=== PATIENT | male | born 1985 | race Asian ===

== ENCOUNTER → 2016-11-27 | Outpatient (CLI) | payer OTHER ==
--- NOTE | 2016-11-27 16:33 | DIAGNOSTIC IMAGING REPORT ---
RIGHT KNEE 3 VIEWS CLINICAL HISTORY: M10.9 GoutM13.0 Polyarthropathy or polyarthritis of multiple sit Right pain COMPARISON: None. DISCUSSION: The bones and joint spaces appear intact. There is no evidence of fracture, dislocation or bony disease. There is no evidence for soft tissue swelling. IMPRESSION: Negative study. Electronically signed by: Sawyer Leblanc M.D. 11/27/2016 4:31 PM Dictated Date/Time: 11/27/2016 4:30 PM
--- NOTE | 2016-11-27 16:36 | DIAGNOSTIC IMAGING REPORT ---
LEFT KNEE 3 VIEWS CLINICAL HISTORY: M10.9 GoutM13.0 Polyarthropathy or polyarthritis of multiple COMPARISON: None. DISCUSSION: The bones and joint spaces appear intact. There is no evidence of fracture, dislocation or bony disease. There is no evidence for soft tissue swelling. IMPRESSION: Negative study. Electronically signed by: Sawyer Leblanc M.D. 11/27/2016 4:34 PM Dictated Date/Time: 11/27/2016 4:31 PM
--- NOTE | 2016-11-27 16:43 | DIAGNOSTIC IMAGING REPORT ---
RIGHT HAND MIN 3 VIEWS ROUTINE, LEFT HAND MIN 3 VIEWS ROUTINE CLINICAL HISTORY: M10.9 GoutM13.0 Polyarthropathy or polyarthritis of multiple sit Right COMPARISON STUDY: None. FINDINGS: No fracture or dislocation. Soft tissues are unremarkable. Bone mineralization is intact. No erosions identified. IMPRESSION: Unremarkable bilateral hands. Electronically signed by: Enrique Gandhi M.D. 11/27/2016 4:41 PM Dictated Date/Time: 11/27/2016 4:40 PM
[2016-11-27 18:12] LABS: RHEUMATOID FACTOR < 10.0 U/mL (0-15); TOTAL IRON BINDING CAPACITY 283 mcg/dl (250-450)
[2016-12-03 02:28] LABS: ANTI-CENTROMERE AB <1.0 NEG AI (<1.0 NEG); ANTI-SS-A <1.0 NEG AI (<1.0 NEG); ANTI-SS-B <1.0 NEG AI (<1.0 NEG); CYCLIC CITRULLINATED PEPT IGG <16 UNITS (<20); DNA ds CRITHIDIA NEGATIVE (NEGATIVE); Sm Antibody <1.0 NEG AI (<1.0 NEG)
== END | disposition home or self-care (01) ==
LOC: C.RAD1850 15:59
PROVIDERS: ATTEND Internal Medicine Rheumatology
DX: M10.9 Gout, unspecified (principal); M13.0 Polyarthritis, unspecified; M22.2X9 Patellofemoral disorders, unspecified knee

== ENCOUNTER → 2017-05-03 | Outpatient (CLI) | payer OTHER | END | disposition home or self-care (01) | LOC: C.LAB1850 15:44 | PROVIDERS: ATTEND Internal Medicine Rheumatology | DX: M10.9 Gout, unspecified (principal); R19.7 Diarrhea, unspecified ==

== ENCOUNTER → 2017-06-06 | Outpatient (CLI) | payer OTHER ==
--- NOTE | 2017-06-06 11:39 | DIAGNOSTIC IMAGING REPORT ---
(BARIUM SWALLOW) ESOPHAGUS CLINICAL HISTORY: 31 years-old Male with R05 Chronic coughPATIENT WITH 3 MONTHS OF CHRONIC COUGH, HEARTBU. Chronic cough with heartburn TECHNIQUE: Barium contrast, effervescent crystals and barium tablet were administered to the patient under fluoroscopic examination. Multiple images were obtained and submitted for review. FLUOROSCOPY TIME: 1.9 minutes COMPARISON: None. FINDINGS: During deglutition, contrast material flowed freely through the cervical esophagus. No filling defect or mucosal abnormality is identified. No abnormal stricturing or mass effect is seen. The mid to distal esophagus is well coated and distended. No abnormal stricturing or mucosal abnormality is identified. No significant reflux or hiatal hernia was demonstrated during the exam. Barium tablet passed freely through the esophagus into the stomach. The gastroesophageal junction is normal in appearance. IMPRESSION: Unremarkable esophagram. No evidence of gastroesophageal reflux. The above report was generated using voice recognition software. It may contain grammatical, syntax or spelling errors. Electronically signed by: Tmi Swann M.D. 06/06/2017 11:37 AM Dictated Date/Time: 06/06/2017 11:35 AM
== END | disposition home or self-care (01) ==
LOC: C.RAD 11:06
DX: R05 Cough (principal); R12 Heartburn; F45.8 Other somatoform disorders

== ENCOUNTER → 2017-07-05 | Outpatient (CLI) | payer OTHER ==
[~2017-07-05] VITALS: Ht 170.2 cm; Wt 146.8 kg
[2017-07-05 15:28] VITALS: BP 126/85; PULSE 74; Ht 170.2 cm; Wt 146.8 kg
== END | disposition home or self-care (01) ==
LOC: C.NEUR 15:15
PROVIDERS: ATTEND Internal Medicine Pulmonary Disease
DX: R06.83 Snoring (principal); E66.01 Morbid (severe) obesity due to excess calories; R53.83 Other fatigue; R06.81 Apnea, not elsewhere classified; G47.19 Other hypersomnia

== ENCOUNTER → 2017-07-25 | Outpatient (CLI) | payer OTHER ==
[2017-07-25 17:43] LABS: BASO % 0.4 %; BASO ABS # 0.03 K/uL (0-0.2); COMPLETE YES; EOS % 2.4 %; HEMATOCRIT 45.5 % (42-52); IG% 0.5 %; LYMPH % 34.7 %; LYMPH ABS # 2.79 K/uL (1.2-3.4); MEAN CORPUSCULAR HEMOGLOBIN 29.2 pg (25-34); MEAN CORPUSCULAR HGB CONC 34.3 g/dl (32-36); MEAN PLATELET VOLUME 11.9 fL (7.4-10.4); MONO % 9.8 %; NEUT % 52.2 %; PLATELET COUNT 217 K/uL (130-400); RED BLOOD COUNT 5.35 M/uL (4.7-6.1); WHITE BLOOD COUNT 8.05 K/uL (4.8-10.8)
[2017-07-25 18:10] LABS: ALT/SGPT 55 U/L (12-78); AST/SGOT 26 U/L (15-37)
[2017-07-25 18:13] LABS: ALKALINE PHOSPHATASE 76 U/L (45-117); URIC ACID 5.3 mg/dl (2.6-7.2)
== END | disposition home or self-care (01) ==
LOC: C.LAB1850 16:21
PROVIDERS: ATTEND Internal Medicine Rheumatology
DX: M10.9 Gout, unspecified (principal)

== ENCOUNTER → 2017-08-04 | Outpatient (CLI) | payer OTHER ==
--- NOTE | 2017-08-05 06:05 | SPLIT NIGHT TECHNICIAN REPORT ---
[facility] Split Night Polysomnogram - Cable Lacer Report Study date: 08/04/2017 Referring Physician: Nito Rodas M.D. Name: FLACACHANAMARCO A Morillo Cable Lacer: TINO Faye. Date of : 1985 Height: 32 years, Height 5' 6.93" Sex: Male Weight: 323 lbs Age: 32 Neck Circum: 19 inches BMI: Medications: 50.69 Allopurinal 100 mg, Nyquill zzz ( took for sleep study) first time using Patient History 32 yr. old male here for a diagnostic sleep study. Patient complains of witnessed apneas, EDS, and snoring. Patients [place] Sleepiness scale score is 15/24. Parameters Monitored NPSG: E1-M2, E2-M1, Fp1-M2, Fp2-M1, F3-M2, F4-M2, F4-M1, C3-M2, C4-M2, C4-M1, O1-M2, O2-M2, O2-M1, T3-M2, T4-M1, P3-M2, P4-M1, CHIN1, CHIN2, HR, EKG, Legs, PFLOW, SNOR, FLOW, CFLOW, Tidal Volume, THOR, ABDO, SpO2, PLTH, CPRESS, ETCO2 Wave, ETCO2, pH SLEEP SUMMARY DATA DIAGNOSTIC TREATMENT Lights Out: 8:28:38 PM NONE Lights On: 11:11:08 PM 4:57:38 AM Total Recording Time (TRT): 162.2 min. 342.8 min. Total Sleep Time (TST): 112.0 min. 303.5 min. NREM Time: 95.5 min. 239.5 min. REM Time: 16.5 min. 64.0 min. Sleep Period Time (SPT): 143.0 min. 318.5 min. Sleep Efficiency (SE): 69 % 89 % Sleep Latency: 19.0 min. NONE min. Arousal Index: 33.8 4.3 PAP Treatment Levels: 4, 5, 7, 8, 9, 10, 11 * Optimal Pressure(s) SLEEP STAGING DATA DIAGNOSTIC TREATMENT Duration (min) TST % Duration (min) TST % Stage Wake: 50.2 min. -- 39.3 min. -- WASO: 31.5 min. -- 15.0 min. -- NREM: 95.5 min. 85 % 239.5 min. 79 % Stage N1: 19.0 min. 17 % 20.0 min. 7 % Stage N2: 76.5 min. 68 % 216.0 min. 71 % Stage N3: 0.0 min. 0 % 3.5 min. 1 % REM: 16.5 min. 15 % 64.0 min. 21 % POSITIONAL DATA Event Count Index Event Count Index Supine: 42 81 57 18.5 Supine NREM: 42 80.7 55 20.9 Supine REM: N/A N/A 2 4 Non-Supine: 92 67.6 4 2.0 Non-Supine NREM: 89 82.2 4 3.0 Non-Supine REM: 3 10.9 0 0.0 AROUSAL SUMMARY DATA: Event Count Index Event Count Index Apnea Arousals: 1 2.7 1 1.0 Hypopnea Arousals: 44 23.6 7 1.4 Snore Arousals: 7 3.8 7 1.4 PLM Arousals: 0 0.0 5 1.0 Non-Specific Arousals: 8 4.3 1 0.2 Total Arousals: 63 33.8 22 4.3 MYOCLONUS (PLM) Event Count Index Event Count Index PLM: 9 4.8 28 5.5 PLM AROUSAL: 0 0.0 5 1.0 PLM W/O AROUSAL 9 4.8 23 4.5 PLM W/RESP EVENT 2 0.0 1 0.0 MYOCLONUS (PLM) Event Count Index Event Count Index LM: 6 33.2 45 8.9 LM AROUSAL: 6 3.2 3 0.6 LM W/O AROUSAL LM W/RESP EVENT LM NON SPECIFIC 31 16.6 53 10.5 HEART RATE DATA DIAGNOSTIC TREATMENT Sleep (bpm): 87 91 REM (bpm): 87 93 NREM (bpm): 90 93 Tachycardia Count: 0 0 Tachycardia Duration: 0.00 0 Bradycardia Count: 0 0 Bradycardia Duration: 0.00 0 DIAGNOSTIC PORTION TREATMENT PORTION RESPIRATORY DATA Event Count Index Event Count Index AHI: -- 71.3 -- 12.1 RDI: -- 71.8 -- 12 Obstructive Apnea: 3 1.6 1 0.2 Central Apnea: 2 1.1 4 0.8 Mixed Apnea: 0 0.0 0 0.0 Hypopnea: 128 68.6 56 11.1 RERA: 1 0.5 0 0.0 Total Apneas: 5 2.7 5 1.0 RESPIRATORY DATA REM NREM SLEEP REM NREM SLEEP Supine Position: Obstructive Apneas: N/A 1 1 0 1 1 Central Apneas: N/A 2 2 0 4 4 Mixed Apneas: N/A 0 0 0 0 0 Hypopneas: N/A 39 39 2 50 52 RERA N/A 0 0 0 0 0 Total Supine Events: N/A 42 42 2 55 57 Supine AHI: N/A 80.7 81 4 20.9 18.5 Supine RDI: N/A 80.7 80.7 4.4 20.9 18.5 REM NREM SLEEP REM NREM SLEEP Non-Supine Position: Obstructive Apneas: 0 2 2 0 0 0 Central Apneas: 0 0 0 0 0 0 Mixed Apneas: 0 0 0 0 0 0 Hypopneas: 3 86 89 0 4 4 RERA 0 1 1 0 0 0 Total Supine Events: 3 89 92 0 4 4 Supine AHI: 10.9 82.2 67.6 0.0 3.0 2.0 Supine RDI: 10.9 83.1 68.3 0.0 3.0 2.0 OXYGEN DESTAURATION DATA: Event Count Index Event Count Index REM Desaturations: 4 14.5 1 0.9 NREM Desaturations: 133 83.6 74 18.5 SNORE DATA DIAGNOSTIC TREATMENT Snore Time: 11.3 11:14:38 PM Snore TST%: 3 2 Snore Arousal Count: 7 7 Snore Arousal Index: 3.8 1.4 Desaturation Event Summary: Minimum %SpO2 Event Count Mean/Min/Max Duration(sec.) Desaturation Index % Time In Bed > 90 225 24.2 / 5.3 / 60.0 34.6 77.6 86 - 90 11 29.9 / 10.3 / 56.0 6.6 19.8 81 - 85 1 25.0 / 25.0 / 25.0 4.9 2.5 76 - 80 0 N/A 0.0 0.2 71 - 75 0 N/A 0.0 0.0 66 - 70 0 N/A 0.0 0.0 61 - 65 0 N/A 0.0 0.0 56 - 60 0 N/A 0.0 0.0 51 - 55 0 N/A 0.0 0.0 < 50 0 N/A 0.0 0.0 OXYGEN SATURATION DATA DIAGNOSTIC TREATMENT SpO2 Mean Sleep: 90 % 93 % SpO2 Mean REM: 87 % 93 % SpO2 Mean NREM: 90 % 93 % SpO2 Minimum Sleep: 79 % 84 % SpO2 Minimum REM: 79 % 90 % SpO2 Minimum NREM: 79 % 84 % Time Below 90% (TST): 59.2 13.2 Time Below 88% (TST): 30.6 3.1 Total REM NREM Awake <50% 0.0 min. 0.0 min. 0.0 min. 0.0 min. 51 - 60% 0.0 min. 0.0 min. 0.0 min. 0.0 min. 61 - 70% 0.0 min. 0.0 min. 0.0 min. 0.0 min. 71 - 80% 0.8 min. 0.6 min. 0.2 min. 0.0 min. 81 - 90% 112.0 min. 14.4 min. 87.9 min. 9.8 min. 91 - 100% 389.8 min. 65.5 min. 247.0 min. 77.3 min. Average 92 92 92 93 Minimum SpO2 79 79 79 84 Desaturation Event Index 27.3 3.7 37.1 14.1 # Desat. Events below 89% 152 4 139 9 Time(%) with Saturation below 89% 11.6 2.3 8.6 0.8 Time(min.) with Saturation below 89% 58.5 11.3 43.1 4.1 Recording Cable Lacer Comments: Mr. Reeves slept in the right, left, and supine positions. No cardiac arrhythmia. PLMs noted. No bruxism noted. Snoring was noted and scored as a 4 on a scale of 0 through 5. (0=no snoring, 5=snoring loud enough to be heard through a closed door or down the ott way) At 11:11 pm Mr. Reeves met specific Split-Night criteria during the diagnostic portion of this study. CPAP was initiated at +4 CMH2O room air and up-titrated to an optimal level of +11 CMH2O no Cflex, which nearly eliminated all respiratory events and snoring. A large [employer] Simplus was used during titration. Mr. Reeves did not wake to use the restroom during the night. Mr. Almalki stated, I slept better than at home". The final report will be interpreted and signed Therapy Event: Therapy (cm H20) 0 4 5 7 8 9 10 11 Total Time at Pressure (min.) 162.2 5.6 12.4 64.8 71.8 18.3 115.9 53.9 TST at Pressure (min.) 112.0 4.9 12.4 63.8 68.8 16.1 108.1 29.4 # Periods 1 1 1 1 1 1 1 1 Sleep Onset (min.) 19.0 0.3 0.0 0.0 0.0 0.0 0.8 0.0 REM Onset (min.) 138.0 N/A N/A 45.3 47.4 0.0 60.3 16.9 Sleep Efficiency % 69 86 100 98 95 88 93 54 Wakefulness (%) 31.0 13.3 0.0 1.5 4.2 11.8 6.8 45.5 Wakefulness (min.) 50.2 0.8 0.0 1.0 3.0 2.2 7.8 24.5 NREM 1 (%) 11.7 24.6 0.9 2.3 2.8 10.9 11.2 0.0 NREM 1 (min.) 19.0 1.4 0.1 1.5 2.0 2.0 13.0 0.0 NREM 2 (%) 47.2 62.1 99.1 73.8 59.1 68.3 69.5 31.4 NREM 2 (min.) 76.5 3.5 12.2 47.8 42.4 12.5 80.6 16.9 NREM 3 (%) 0.0 0.0 0.0 0.0 0.0 0.0 3.0 0.0 NREM 3 (min.) 0.0 0.0 0.0 0.0 0.0 0.0 3.5 0.0 REM (%) 10.2 0.0 0.0 22.4 33.9 9.0 9.5 23.2 REM (min.) 16.5 0.0 0.0 14.5 24.4 1.6 11.0 12.5 # Arousals 63 4 6 0 2 2 8 0 Arousal Index 33.8 49.1 29.1 0.0 1.7 7.4 4.4 0.0 # Snore 461 2 50 74 13 11 27 2 Snore Index 247.0 24.6 242.8 69.5 11.3 40.9 15.0 4.1 AHI 71.3 122.8 82.5 5.6 5.2 44.6 5.0 2.0 AHI Supine 80.7 122.8 82.5 5.6 10.9 81.5 9.1 2.0 AHI Non-Supine 67.6 N/A N/A N/A 0.0 0.0 3.2 N/A NREM AHI 81.7 122.8 82.5 4.9 8.1 49.7 5.6 3.6 REM AHI 10.9 N/A N/A 8.3 0.0 0.0 0.0 0.0 RDI 71.8 122.8 82.5 5.6 5.2 44.6 5.0 2.0 # Obstructive 3 0 0 0 0 1 0 0 # Central Ap 2 2 0 0 1 1 0 0 # Mixed 0 0 0 0 0 0 0 0 # Hypopneas 128 8 17 6 5 10 9 1 RERAS 1 0 0 0 0 0 0 0 Total Respiratory Events 134 10 17 6 6 12 9 1 Time Below SpO2 89.00% (min.) 46.7 1.1 5.5 0.4 0.0 0.3 0.3 0.0 Mean NREM SpO2 (%) 90 91 90 91 93 93 94 94 Mean REM SpO2 (%) 87 N/A N/A 92 94 94 94 93 Mean Sleep SpO2 (%) 90 91 90 92 93 93 94 93 Min NREM SpO2 (%) 79 85 84 88 89 88 87 90 Min REM SpO2 (%) 79 N/A N/A 90 91 93 93 90 Position Supine (min.) 31.2 4.9 12.4 63.8 32.9 8.8 32.9 29.4 Position Non-supine (min.) 80.8 0.0 0.0 0.0 35.9 7.3 75.2 0.0 LM Index Sleep 38.0 49.1 53.4 1.9 4.4 26.0 22.2 8.2 LM Index NREM 42.7 49.1 53.4 0.0 1.4 29.0 24.7 7.1 LM Index REM 10.9 N/A N/A 8.3 9.9 0.0 0.0 9.6 Mean Heart Rate (bpm) 87 88 85 90 93 91 92 91 Min Heart Rate (bpm) 67 78 71 73 72 75 73 75
--- NOTE | 2017-08-05 14:28 | POLYSOMNOGRAPH REPORT ---
CLINICAL DATA: 32-year-old male with BMI of 50.7 referred by myself and his primary care physician for complaints of excessive daytime sleepiness, witnessed apnea, and snoring. His [place] sleepiness score is 15/24. This was a split night study. SLEEP ARCHITECTURE: For the diagnostic portion of the study, sleep period time was 143 minutes. Total sleep time was 112 minutes divided between 95.5 minutes of non-REM sleep and 16.5 minutes of REM sleep. Sleep latency was 19 minutes. Sleep efficiency was 69%. Sleep consisted of stage N1 17%, staging N2 68%, and REM 15%. For the treatment portion of the study, sleep period time was 318.5 minutes. Total sleep time was 303.5 minutes divided between 239.5 minutes of non-REM sleep and 64 minutes of REM sleep. Sleep onset latency was immediate. Sleep efficiency was 89%. Sleep consisted of stage N1 7%, stage N2 71%, stage N3 1%, and REM 21%. AROUSAL DATA: Prior to treatment, 63 arousals were recorded for an index of 33.8 per hour. During treatment, 22 arousals were recorded for an index of 4.3 per hour. PLM DATA: Prior treatment, 31 limb movements during sleep were noted for an index of 16.6 per hour. During treatment 53 limb movements during sleep were noted for an index of 10.5 per hour. EKG: Heart rates ranged from 87 to 93 beats per minute. No arrhythmias were noted. RESPIRATORY DATA: Prior to treatment, severe CHANDRAKANT was documented. The AHI was 71.3. There were 3 obstructive and 2 central apneic episodes and 128 hypopneic episodes. The mean AHI during treatment was 12.1. There was 1 obstructive and 4 central apneic episodes. There were 56 hypopneic episodes. OXIMETRY DATA: Prior to treatment, nocturnal hypoxemia was seen. Oxygen max was 79% during non-REM sleep. The mean saturation during treatment was 93%. TECHNICAL SERVICE SPECIALIST'S COMMENTS AND TREATMENT SUMMARY: The patient slept in the right, left, and supine positions. Snoring was severe, rated 4 on a scale of 1-5. At 11:11 p.m. he met split night criteria. He used a large [employer] Simplus mask. He was titrated up to his final pressure setting on 11 cm of water pressure. At that pressure setting he slept for 29.4 minutes with an AHI of 2. IMPRESSION: Severe sleep apnea/hypopnea with diagnostic AHI of 71.3 corrected with CPAP 11 cm water pressure, large [employer] Simplus mask. RECOMMENDATIONS: The patient should be started on the above noted treatment regimen and seen back in followup within 90 days to document efficacy and compliance. RANDID
== END | disposition home or self-care (01) ==
LOC: C.NEUR 20:00
PROVIDERS: ATTEND Internal Medicine Pulmonary Disease
DX: G47.30 Sleep apnea, unspecified (principal); M10.9 Gout, unspecified; G47.19 Other hypersomnia; R53.83 Other fatigue; E66.01 Morbid (severe) obesity due to excess calories; R06.83 Snoring

== ENCOUNTER → 2017-09-10 | Outpatient (CLI) | payer OTHER ==
[~2017-09-10] VITALS: Ht 169.9 cm; Wt 147.6 kg
[2017-09-10 15:44] VITALS: BP 144/94; PULSE 98; Ht 169.9 cm; Wt 147.6 kg
== END | disposition home or self-care (01) ==
LOC: C.NEUR 15:02
PROVIDERS: ATTEND Physician Assistant Medical
DX: G47.34 Idiopathic sleep related nonobstructive alveolar hypoventilation (principal); E66.01 Morbid (severe) obesity due to excess calories; R53.83 Other fatigue; R03.0 Elevated blood-pressure reading, without diagnosis of hypertension

== ENCOUNTER → 2017-10-05 | Outpatient (CLI) | payer OTHER ==
[2017-10-05 13:59] LABS: HEMOGLOBIN A1C 5.5 % (4.5-5.6)
[2017-10-05 14:16] LABS: BLOOD UREA NITROGEN 10 mg/dl (7-18); CALCIUM 8.9 mg/dl (8.5-10.1); CARBON DIOXIDE 26 mmol/L (21-32); CREATININE 1.01 mg/dl (0.60-1.40); GLUCOSE 89 mg/dl (70-99); SODIUM 138 mmol/L (136-145)
[2017-10-05 14:18] LABS: CHOLESTEROL 159 mg/dl (0-200); LDL CHOLESTEROL CALCULATED 85 mg/dl
--- NOTE | 2017-10-05 14:25 | DIAGNOSTIC IMAGING REPORT ---
CHEST AND ABDOMEN 2 VIEWS HISTORY: R19.7 Diarrhea Pt with frequent days of diarrhea. COMPARISON: Chest 07/05/2016. FINDINGS: The lungs are clear. The cardiomediastinal silhouette is within normal limits. There is no pneumoperitoneum or pneumatosis. The bowel gas pattern is unremarkable. No evidence for bowel obstruction. No pathologic calcifications. IMPRESSION: No acute cardiopulmonary process. No evidence for bowel obstruction. Electronically signed by: Enrique Gandhi M.D. 10/05/2017 2:23 PM Dictated Date/Time: 10/05/2017 2:09 PM
== END | disposition home or self-care (01) ==
LOC: C.RAD 13:39
PROVIDERS: ATTEND Family Medicine
DX: R19.7 Diarrhea, unspecified (principal); E66.01 Morbid (severe) obesity due to excess calories

== ENCOUNTER → 2017-11-26 | Outpatient (CLI) | payer OTHER ==
[~2017-11-26] VITALS: Ht 170 cm; Wt 150.4 kg
[2017-11-26 12:49] VITALS: BP 130/84; PULSE 93; Ht 170 cm; Wt 150.4 kg
== END | disposition home or self-care (01) ==
LOC: C.NEUR 12:35
PROVIDERS: ATTEND Internal Medicine Pulmonary Disease
DX: G47.34 Idiopathic sleep related nonobstructive alveolar hypoventilation (principal); E66.01 Morbid (severe) obesity due to excess calories; Z68.42 Body mass index [BMI] 45.0-49.9, adult

== ENCOUNTER 2018-03-15 18:40 | Emergency (ER) | payer OTHER ==
[~2018-03-15] VITALS: Ht 170.2 cm; Wt 152.6 kg
[2018-03-15 18:41] VITALS: BP 152/94; TEMP 36.7; Ht 170.2 cm; Wt 152.6 kg
--- NOTE | 2018-03-15 19:05 | EMERGENCY ROOM VISIT NOTE ---
History First contact with patient: 18:45 Chief Complaint: SHOULDER PAIN Stated Complaint: PAIN IN SHOULDER History of Present Illness The patient is a 32 year old male who presents to the Emergency Room with complaints of right shoulder pain. The patient states that he has had pain in the right shoulder for the past 4-5 days. He first noticed pain when he was putting on his shirt after a shower. He states that he has increasing pain when he is lifting his arm over his head to put on clothing. He states that initially, the pain was radiating into the neck but it is no longer radiating there. He reports the pain was initially improving, but is now worsening again. He states the pain is aching and rates the discomfort an 8/10. He has used icy hot which does give him a few hours of relief when he uses it. He denies any numbness or weakness. He denies any previous issues with the shoulder. There was no injury to the shoulder. Review of Systems A complete 6 point review of systems was reviewed with the patient with pertinent positives and negatives as per history of present illness. All else were negative. Past Medical/Surgical History Medical Problems: (1) No significant active problems Social History Smoking Status: Current Some Day Smoker Current/Historical Medications Scheduled Naproxen (Naprosyn), 250 MG PO BID Physical Exam Vital Signs Date Time Temp Pulse Resp B/P (MAP) Pulse Ox O2 Delivery O2 Flow Rate FiO2 03/15/18 20:48 118 16 98 03/15/18 18:41 36.7 104 17 152/94 95 Room Air Physical Exam VITALS: Vitals are noted on the nurse's note and reviewed by myself. Vital signs stable. GENERAL: This is a 32-year-old male, in no acute distress, nondiaphoretic, well- developed well-nourished. SKIN: No laceration, abrasion, erythema or warmth. MUSCULOSKELETAL: No gross deformity noted. There is tenderness to the anterior aspect of the right shoulder. No tenderness of the C-spine or remainder of the arm. Full range of motion. Abduction and flexion 4/5, abduction and extension 5/5. Kosher Sealer strength 5/5. Capillary refill within 2 seconds. NEURO: Patient was alert and oriented to person place and time. Distal sensation intact. Medical Decision & Procedures ER Provider Diagnostic Interpretation: R SHOULDER 4 VIEWS ROUTINE CLINICAL HISTORY: Right shoulder pain COMPARISON: None. DISCUSSION: No fractures or dislocations are visualized. There are peritendinous calcifications suspicious for calcific tendinitis. IMPRESSION: 1. No fractures or dislocations identified 2. Probable calcific tendinitis Medical Decision Differential diagnosis includes fracture, dislocation, rotator cuff injury, tendinitis, among others., among others. The patient is a 32-year-old male who presents today complaining of right shoulder pain. X-ray shows probable calcific tendinitis. Patient will be started on anti-inflammatories. He was advised to follow-up with orthopedics and may benefit from physical therapy. He verbalized understanding of my assessment and treatment plan and was discharged home in good condition. Medication Reconcilliation Current Medication List: was personally reviewed by me Blood Pressure Screening Patient's blood pressure: Elevated blood pressure Blood pressure disposition: Elevated BP felt to be situational Impression Primary Impression: Calcific tendinitis of shoulder Departure Information Dispostion Home / Self-Care Condition GOOD Prescriptions Naproxen (NAPROSYN) 250 Mg Tab 250 MG PO BID for 7 Days, #14 TAB Prov: Molly Roberson PA-C 03/15/18 Referrals Tiesha Villa MD (PCP) Oscar Terry MD Patient Instructions My [facility] Additional Instructions You have been treated in the Emergency Department for Shoulder Pain. Naprosyn as prescribed. For pain control, you can use the following [id number] medicines (if >12 yo): - Regular strength (325mg/tab) Tylenol (acetaminophen) 2 tabs every 4-6 hours as needed. Do not exceed 12 tablets in a 24 hour period. Avoid taking more than 4 grams (4000 mg) of Tylenol per day. This includes any other sources of acetaminophen you may take on a regular basis. If this is a recent injury (<24 hrs), ice can be applied to the area of pain for the first 3 days to help decrease pain and inflammation. You have been provided the number for an Orthopaedic Surgeon. You should call this number as soon as possible to establish a follow-up visit from today's Emergency Department visit. Return to the Emergency Department if your current symptoms worsen despite treatment course outlined above, or if you develop any of the following symptoms : intractable pain despite aforementioned treatment course or new onset of numbness or tingling of the arm. Problem Qualifiers Primary Impression: Calcific tendinitis of shoulder Laterality: right Qualified Codes: M75.31 - Calcific tendinitis of right shoulder
--- NOTE | 2018-03-15 20:00 | DIAGNOSTIC IMAGING REPORT ---
R SHOULDER 4 VIEWS ROUTINE CLINICAL HISTORY: Right shoulder pain COMPARISON: None. DISCUSSION: No fractures or dislocations are visualized. There are peritendinous calcifications suspicious for calcific tendinitis. IMPRESSION: 1. No fractures or dislocations identified 2. Probable calcific tendinitis Electronically signed by: George Smith M.D. 03/15/2018 7:59 PM Dictated Date/Time: 03/15/2018 7:56 PM
[2018-03-15] MEDS ORDERED: NAPR250T77 PO (20:42)
[2018-03-15 20:48] VITALS: PULSE 118; O2SAT 98
== END 2018-03-15 20:48 | disposition home or self-care (01) ==
LOC: C.EDB 18:40 → C.EDD 20:48
DX: M75.31 Calcific tendinitis of right shoulder (principal); Z72.0 Tobacco use; R03.0 Elevated blood-pressure reading, without diagnosis of hypertension